=== PATIENT | female | born 1995 | race Caucasian/White ===

== ENCOUNTER → 2017-01-28 | Outpatient (CLI) | payer OTHER ==
[~2017-01-28] MED LIST: IOPAMIDOL (ISOVUE 370) 100 ML BTL IV ONE
== END ==
LOC: FIMAGING 09:02
PROVIDERS: ATTEND Internal Medicine Cardiovascular Disease
DX: I77.819 Aortic ectasia, unspecified site (principal); R91.1 Solitary pulmonary nodule; Q23.1 Congenital insufficiency of aortic valve
CPT/HCPCS: Q9967

== ENCOUNTER 2017-08-09 16:10 | Emergency (ER) | payer OTHER ==
[2017-08-09 16:20] VITALS: O2SAT 97
--- NOTE | 2017-08-09 16:38 | CPEKG ---
Heart Rate: 88 RR Interval: 682 P-R Interval: 164 QRSD Interval: 88 QT Interval: 364 QTC Interval: 441 P [place]: 60 QRS [place]: 9 T Wave [place]: 44 EKG Severity - NORMAL ECG - EKG Impression: SINUS RHYTHM Electronically Signed By: Ann Marie Bravo 09-Aug-2017 19:40:25
--- NOTE | 2017-08-09 16:49 | EDPHY ---
H & P Time Seen by Provider: 08/09/17 16:26 HPI/ROS: CHIEF COMPLAINT: Chest pain HISTORY OF PRESENT ILLNESS: 22-year-old female presents with chest pain. Onset of a sharp and stabbing left-sided chest pain this morning. The pain is moderate and radiates to her back. Associated with shortness of breath. The pain has lasted several hours, which is atypical for her. She occasionally has this type of discomfort, but it usually only lasts a few minutes. She has a history of a dilated ascending thoracic aorta. The aorta dilation is being watched and the plan is for surgery in [address] scan was in January 2017. History of tachycardia, on metoprolol. Has skipped multiple doses of metoprolol because it makes her fatigued. 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 Smoking Status: Current every day smoker Physical Exam: General Appearance: Alert, pleasant Eyes: Pupils equal and round, no conjunctival pallor or injection ENT, Mouth: Mucous membranes moist Neck: Normal inspection Respiratory: Lungs are clear to auscultation Cardiovascular: Regular rate and rhythm, no murmur Gastrointestinal: Abdomen is soft and nontender Neurological: A&O, nonfocal, normal gait Skin: Warm and dry Extremities: Nontender, no pedal edema Psychiatric: Mood and affect normal Constitutional: Initial Vital Signs Temperature (C) 36.0 C 08/09/17 16:16 Heart Rate 105 H 08/09/17 16:16 Respiratory Rate 16 08/09/17 16:16 Blood Pressure 122/91 H 08/09/17 16:16 O2 Sat (%) 97 08/09/17 16:16 O2 Delivery Mode Room Air Allergies/Adverse Reactions: No Known Allergies Allergy (Unverified 05/14/14 23:40) Home Medications: Medication Instructions Recorded Metoprolol Succinate 08/09/17 Metoprolol Succinate 08/09/17 Medical Decision Making - Diagnostics EKG Interpretation: EKG interpreted by me reveals normal sinus rhythm, rate 88, no ST or T segment changes. Imaging Results: CTA: no change in ascending thoracic aorta dilation, no PE/pneumonia. Imaging: Discussed imaging studies w/ calliope player Radiologist ED Course/Re-evaluation: This pt presents with chest pain radiating to her back; concern for aortic dissection/ increasing dilation, given h/o aortic dilation. stat EKG reveals no ischemia or dysrhythmia. CTA chest ordered after risks/benefits clearly discussed with pt. Pt agrees with CT, accepts risks. CT results d/w pt. Sx have improved. Likely musculoskeletal pain. No evidence of ACS/dissection/PE. Will give Toradol 15mg IV prior to d/c. F/u cardiology. Differential Diagnosis: Differential diagnosis includes though it is not limited to pneumonia, pneumothorax, pulmonary embolism, aortic dissection, pericarditis, acute coronary syndrome. - Data Points Laboratory Results: Laboratory Results 08/09/17 17:46 08/09/17 17:05 Departure - Departure Disposition: Home, Routine, Self-Care Clinical Impression: Chest pain Qualifiers: Chest pain type: chest pain on breathing Qualified Code(s): R07.1 - Chest pain on breathing Condition: Good Instructions: Chest Pain (ED) Additional Instructions: Take metoprolol as prescribed. Ibuprofen 600mg every 6 hours as needed for pain. Return for worsening symptoms or any concerns. Referrals: Fito Wisdom MD [Medical Doctor] - 2-3 days without fail
[2017-08-09] MEDS ORDERED: IOPAMIDOL (ISOVUE 370) 100 ML BTL IV ONE (17:17)
[2017-08-09 17:41] LABS: ANION GAP 13 mEq/L (8-16); CALCIUM 9.6 mg/dL (8.5-10.4); CARBON DIOXIDE 19 mEq/l (22-31); CHLORIDE 108 mEq/L (97-110); CREATININE 0.7 mg/dL (0.6-1.0); GLOMERULAR FILTRATION RATE > 60; GLUCOSE 97 mg/dL (70-100); POTASSIUM 3.7 mEq/L (3.5-5.2); SODIUM 140 mEq/L (134-144)
[2017-08-09 17:57] LABS: % IMMATURE GRANULYOCYTES 0.1 % (0.0-1.1); ABSOLUTE IMMATURE GRANULOCYTES 0.01 10^3/uL (0.00-0.10); ADD DIFF? NO; ADD MORPH? NO; ADD SCAN? NO; ATYPICAL LYMPHOCYTE FLAG 20 (0-99); FRAGMENT RBC FLAG 0 (0-99); HEMATOCRIT 37.7 % (38.0-47.0); HEMOGLOBIN 13.2 g/dL (12.6-16.3); LEFT SHIFT FLG 0 (0-99); LIPEMIA HEMOLYSIS FLAG 90 (0-99); MEAN CELL HEMOGLOBIN 32.4 pg (27.9-34.1); MEAN CELL VOLUME 92.6 fL (81.5-99.8); MEAN PLATELET VOLUME 11.1 fL (8.7-11.7); PLATELET CLUMPS FLAG 0 (0-99); PLATELET COUNT 217 10^3/uL (150-400); RED BLOOD CELL COUNT 4.07 10^6/uL (4.18-5.33); RED CELL DISTRIBUTION WIDTH 11.6 % (11.5-15.2)
[2017-08-09 17:59] VITALS: RESP 18
[2017-08-09 18:24] VITALS: BP 114/86; PULSE 74; TEMP 98.2
== END 2017-08-09 18:23 | disposition home or self-care (01) ==
DX: R07.1 Chest pain on breathing (principal); F17.200 Nicotine dependence, unspecified, uncomplicated
CPT/HCPCS: 82947-QW; Q9967

== ENCOUNTER → 2017-09-17 | Outpatient (CLI) | payer OTHER | LOC: BRMIMAGING 14:26 | PROVIDERS: ATTEND Internal Medicine | DX: M25.511 Pain in right shoulder (principal) | CPT/HCPCS: 73030-PO ==

== ENCOUNTER → 2018-03-15 | Day surgery (SDC) | payer OTHER ==
[~2018-03-15] MED LIST changes: +BUPIVACAINE 0.5% 30 ML SDV ONE; -IOPAMIDOL (ISOVUE 370) 100 ML BTL IV ONE; +LIDOCAINE 1% 300 MG/30 ML SDV ONE; +LIDOCAINE 1% 300 MG/30 ML SDV SC ONE; +MIDAZOLAM 2 MG/2 ML VIAL ONE; +fentaNYL 100 MCG/2 ML INJ ONE
--- NOTE | 2018-03-15 11:12 | PDGENHP ---
History & Physical Chief Complaint: ILR device is at end of life Relevant Physical Exam: s1s2 rrr. cta ao3 Cardiorespiratory Assessment: ILR explant in EP lab. pt requests sedation
--- NOTE | 2018-03-15 11:12 | PDPROPOC ---
Sedation Plan of Care Sedation Plan of Care: vital signs stable, mental status noted, patient educated of risks, benefits, alternatives, patient can tolerate sedation ASA Classification: ASA 1 Planned drugs: fentanyl, midazolam Mallampati Score: Class 1 Mallampati Reference Image: Patient passed 3-3-2 rule?: Yes
--- NOTE | 2018-03-15 12:56 | EPPROC ---
Electrophysiology Procedure Note: Procedure - ILR explant Sedation - moderate, admin by EP materials specialist - sterile precautions followed. Local anesthetic administered. ILR explanted using standard technique. Wound closed with vicryl and 2 paloma. No complications Patient Problems: Problems Problem Status Onset Closed head injury Acute Pneumothorax Acute Supraventricular tachycardia Acute Chest pain Acute
== END | disposition home or self-care (01) ==
LOC: FCATH 10:58
PROVIDERS: ATTEND Internal Medicine Cardiovascular Disease
PROC: 0JPT02Z Removal of Monitoring Device from Trunk Subcutaneous Tissue and Fascia, Open Approach (ICD-10-PCS; principal; 2018-03-15)
DX: Z45.09 Encounter for adjustment and management of other cardiac device (principal); I47.1 Supraventricular tachycardia; I47.2 Ventricular tachycardia; R00.2 Palpitations; Q23.1 Congenital insufficiency of aortic valve
CPT/HCPCS: J2250; J3010

== ENCOUNTER → 2018-12-23 | Outpatient (CLI) | payer OTHER ==
--- NOTE | 2018-12-26 13:24 | CPEEG ---
[f rep st] ELECTROENCEPHALOGRAM DATE OF STUDY: 12/23/2018 DATE OF INTERPRETATION: 12/26/2018 INTERPRETATION: Normal EEG during wakefulness and sleep. There were no potentially epileptogenic ab normalities present in the recording. REPORT: This EEG contains 10 Hz alpha activity of the posterior head regions. There was no abnormal activation at rest, during photic stimulation or hyperventilation. The background activity was norm al and symmetric. The patient became drowsy and fell asleep during the study. There was no abnormal activation during drowsiness, sleep, or during times of arousal. /[id number]/MODL
== END ==
LOC: FCPNEURO 12:48
PROVIDERS: ATTEND Psychiatry & Neurology Neurology
DX: R42 Dizziness and giddiness (principal)

== ENCOUNTER → 2018-12-30 | Outpatient (CLI) | payer OTHER ==
[~2018-12-30] MED LIST changes: -BUPIVACAINE 0.5% 30 ML SDV ONE; +IOPAMIDOL (ISOVUE 370) 100 ML BTL IV ONE; -LIDOCAINE 1% 300 MG/30 ML SDV ONE; -LIDOCAINE 1% 300 MG/30 ML SDV SC ONE; -MIDAZOLAM 2 MG/2 ML VIAL ONE; -fentaNYL 100 MCG/2 ML INJ ONE
== END ==
LOC: FIMAGING 12:32
PROVIDERS: ATTEND Registered Nurse
DX: I71.4 Abdominal aortic aneurysm, without rupture (principal); I47.1 Supraventricular tachycardia; R91.1 Solitary pulmonary nodule; Z87.74 Personal history of (corrected) congenital malformations of heart and circulatory system
CPT/HCPCS: Q9967

== ENCOUNTER → 2019-01-02 | Outpatient (CLI) | payer OTHER ==
[~2019-01-02] MED LIST changes: +GADOBUTROL 10 ML VIAL IVP ONE; -IOPAMIDOL (ISOVUE 370) 100 ML BTL IV ONE
== END ==
LOC: FIMAGING 14:45
PROVIDERS: ATTEND Psychiatry & Neurology Neurology
DX: R42 Dizziness and giddiness (principal)
CPT/HCPCS: A9585